=== PATIENT | male | born 1935 | race Caucasian/White ===

== ENCOUNTER 2016-12-20 12:41 | Day surgery (SDC) | payer MEDICARE ==
--- NOTE | ~2016-12-20 | EGD ---
EGD REPORT [facility] [address] [address] NAME: ERIBERTO GONZALEZ : 35 STATUS : REG [facility] [place] PAT#: [id number] AGE: 81 ADM/REG DATE : 12/20/16 MR#: [id number] REPORT SERV DATE: 12/20/16 DICTATED BY: GOPAL OLEARY DATE: 12/20/16 REPORT STATUS : Draft TRANSCRIBED BY: [facility] DATE: 12/20/16 Endoscopy Center Patient Name: Eriberto Gonzalez Date of : 1935 Attending MD: DEZ OLEARY MD Procedure Date No Time: 12/20/2016 Procedure: Upper GI endoscopy Indications: Dysphagia Referring MD: TRACEY DE LA CRUZ MD, BRENDA GUTIERREZ Medicines: See the Anesthesia note for documentation of the administered medications Complications: No immediate complications. Estimated blood loss: None. Procedure: Pre-Anesthesia Assessment: - Prior to the procedure, a History and Physical was performed, and patient medications and allergies were reviewed. The patient's tolerance of previous anesthesia was also reviewed. The risks and benefits of the procedure and the sedation options and risks were discussed with the patient. All questions were answered, and informed consent was obtained. Prior Anticoagulants: The patient has taken Plavix (clopidogrel), last dose was 1 day prior to procedure. ASA Grade Assessment: IV - A patient with severe systemic disease that is a constant threat to life. After reviewing the risks and benefits, the patient was deemed in satisfactory condition to undergo the procedure. - Patient has been on coumadin and lovenox managed by Dr Gutierrez After obtaining informed consent, the endoscope was passed under direct vision. Throughout the procedure, the patient's blood pressure, pulse, and oxygen saturations were monitored continuously. The GIF [id number] was introduced through the mouth, and advanced to the second part of duodenum. The upper GI endoscopy was accomplished without difficulty. The patient tolerated the procedure well. Findings: The examined duodenum was normal. Biopsies were taken with a cold forceps for histology. A single localized, small non-bleeding erosion was found in the stomach. There were no stigmata of recent bleeding. Biopsies were taken with a cold forceps for histology. No other significant abnormalities were identified in a careful examination of the stomach. EGD REPORT [address] [place]. [address] NAME: ERIBERTO GONZALEZ : 35 STATUS : REG [facility]#: [id number] AGE: 81 ADM/REG DATE : 12/20/16 MR#: [id number] REPORT SERV DATE: 12/20/16 DICTATED BY: GOPAL OLEARY DATE: 12/20/16 REPORT STATUS : Draft TRANSCRIBED BY: [employer] [facility] DATE: 12/20/16 The cardia and gastric fundus were normal on retroflexion. The examined esophagus was normal. A guidewire was placed and the scope was withdrawn. Dilation was performed with a Savary dilator with no resistance at 51 Fr, no resistance at 57 Fr and no resistance at 60 Fr. Estimated blood loss: none. Impression: - Normal examined duodenum. Biopsied. - Non-bleeding erosive gastropathy. Biopsied. - Normal esophagus. Dilated. Recommendation: - Patient has a contact number available for emergencies. The signs and symptoms of potential delayed complications were discussed with the patient. Return to normal activities tomorrow. Written discharge instructions were provided to the patient. - Regular diet. - Discharge patient to home. - Continue present medications. - Await pathology results. - Restart coumadin and lovenox as has been explained to you by Dr Friedman Procedure Code(s): --- Professional --- 60443, Esophagogastroduodenoscopy, flexible, transoral; with insertion of guide wire followed by passage of dilator(s) through esophagus over guide wire 44348, Esophagogastroduodenoscopy, flexible, transoral; with biopsy, single or multiple Diagnosis Code(s): --- Professional --- K31.9, Disease of stomach and duodenum, unspecified R13.10, Dysphagia, unspecified CPT copyright 2013 [employer] [employer]. All rights reserved. The codes documented in this report are preliminary and upon vocational nursing instructor review may be revised to meet current compliance requirements. DEZ OLEARY MD 12/20/2016 3:04 PM This report has been signed electronically. Number of Addenda: 0 Note Initiated On: 12/20/2016 2:24 PM Scope Withdrawal Time 0 hours 0 minutes 0 seconds EGD REPORT [facility] [address] [facility] [address] NAME: ERIBERTO GONZALEZ : 35 STATUS : REG [facility] [place] [facility] PAT#: [id number] AGE: 81 ADM/REG DATE : 12/20/16 MR#: [id number] REPORT SERV DATE: 12/20/16 DICTATED BY: GOPAL OLEARY DATE: 12/20/16 REPORT STATUS : Draft TRANSCRIBED BY: [employer] DATE: 12/20/16 [address] [place] [address]
[~2016-12-20 12:41] MED LIST: C5 PO; CELEXA20 PO; CELLCEPT5 PO; COREG3 PO; COREG6 PO; COUMADIN4 MG PO; COUMADIN7.5 MG PO; CRESTOR40 MG PO; DURICEF PO; FISH-EPA1000 MG PO; FLOMAX4 PO; KLOR-CON 1010 MEQ PO; KLOR-CON M2020 MEQ PO; L40 PO; LOVENOX; LOVENOX1C SC; NORCO1 TA1 PO; P20 PO; P5 PO; PLAVIX PO; POTASSIUM PO; POTASSIUM95 MG PO; RAPAFLO8 MG PO; UROCIT-K 5540 MG OR; ZANTAC 150 PO; ZANTAC150 MG PO; ZOCOR40 PO
[2017-01-11] MEDS ORDERED: AT25 PO (09:17)
[2017-06-14] MEDS ORDERED: COREG3 PO (17:02)
[2017-06-14] MEDS ORDERED: CELEXA40 MG PO (17:03)
[2017-06-14] MEDS ORDERED: PLAVIX PO (17:03)
[2017-06-14] MEDS ORDERED: POTASSIUM GLUCO99 MG PO (17:03)
[2017-06-14] MEDS ORDERED: DURA12 TOP (17:03)
[2017-06-14] MEDS ORDERED: ZANTAC150 MG PO (17:03)
[2017-06-14] MEDS ORDERED: ACET500CAP PO (17:04)
[2017-06-14] MEDS ORDERED: MIRALAX POWDER1 PKT PO (17:04)
== END 2016-12-20 23:59 | disposition home or self-care (01) ==
LOC: DMU 12:41
PROVIDERS: Internal Medicine Gastroenterology
PROC: 0D758ZZ Dilation of Esophagus, Via Natural or Artificial Opening Endoscopic (ICD-10-PCS; 2016-12-20)
PROC: 0DB98ZX Excision of Duodenum, Via Natural or Artificial Opening Endoscopic, Diagnostic (ICD-10-PCS; principal; 2016-12-20 14:00)
PROC: 0DB68ZX Excision of Stomach, Via Natural or Artificial Opening Endoscopic, Diagnostic (ICD-10-PCS; 2016-12-20 14:00)
DX: K29.50 Unspecified chronic gastritis without bleeding (principal); K31.9 Disease of stomach and duodenum, unspecified; R13.10 Dysphagia, unspecified
CPT/HCPCS: 88305

== ENCOUNTER 2017-01-15 09:53 | Day surgery (SDC) | payer MEDICARE ==
--- NOTE | ~2017-01-15 | OP ---
Record Of Operation [facility] [address] [place]. [address] NAME: ERIBERTO GONZALEZ : 35 STATUS : [facility]#: [id number] AGE: 81 ADM/REG DATE : 01/15/17 MR#: [id number] REPORT SERV DATE: 01/15/17 DICTATED BY: MISAEL BECKETT DATE: 01/15/17 REPORT STATUS : Draft TRANSCRIBED BY: MODL DATE: 01/15/17 DATE OF PROCEDURE: 01/15/2017 PREOPERATIVE DIAGNOSIS: Melanoma. POSTOPERATIVE DIAGNOSIS: Melanoma. PROCEDURE: Port-A-Cath placement. SURGEON: Misael Beckett M.D. CAFETERIA ASSOCIATE: Leoncio Govea M.D. ANESTHESIA: MAC. ESTIMATED BLOOD LOSS: Less than 5 mL. IV FLUIDS: 300 mL of crystalloid. SPECIMENS: None. DRAINS: None. COMPLICATIONS: None. FINDINGS: The patient had a patent and full right internal jugular vein catheter. The catheter at the end of the case was noted to be at the proximal to the SVC right atrial junction with a good bend, no kink in it, connected the port placed and also aspirated flushed with ease. INDICATIONS FOR PROCEDURE: This is an 81-year-old male with melanoma who needs central venous access to undergo chemotherapy and immunomodulation therapy. The above procedure was offered to the patient. Risks, benefits, and alternatives were explained and the patient, he expressed clear verbal understanding, wished to proceed for this elective procedure. DESCRIPTION OF PROCEDURE: After informed consent was obtained, the patient was taken back to the operative theater. The patient was laid on the operating table in the supine position. The patient was given adequate analgesia and anesthesia, and the surgery site was then prepped and draped in a standard fashion. A formal time-out was then performed. Appropriate preoperative antibiotics had been administered. All present in the operating room were in agreement and we elected to proceed for procedure. I began by administration of local anesthetic to the right side of the neck as well as to the right chest wall. Then, under ultrasound guidance, we located the right internal jugular vein. This was then accessed with an 18-gauge needle, and then cannulated with a guidewire. The guidewire was then secured to the sterile drapes. We then made our incision on the right chest wall inferior to the clavicle to anchor a port pocket. We then used electrocautery and blunt Record Of Operation [facility] [address] [place]. [address] NAME: ERIBERTO GONZALEZ : 35 STATUS : [facility] PAT#: [id number] AGE: 81 ADM/REG DATE : 01/15/17 MR#: [id number] REPORT SERV DATE: 01/15/17 DICTATED BY: MISAEL BECKETT DATE: 01/15/17 REPORT STATUS : Draft TRANSCRIBED BY: CONI DATE: 01/15/17 dissection and created the port pocket. We then used a 3-0 Vicryl and placed anchoring stitches on the medial and lateral aspect for port. These were then passed through and connected to the port, but not secured down. With an 11 blade, we made an incision over the guidewire at access site. We then used the dilator peel-away sheath advanced over the guidewire down the right internal jugular vein. We then removed the guidewire and the dilator leaving the peel-away sheath in place. We advanced the catheter down to the peel- away sheath, then removed it, leaving the catheter in place. The catheter was noted to be at the 15 cm dalton at the skin level at the access site. Fluoroscopy revealed the catheter tip to be proximal to the SVC right atrial junction. We then used a tunneler and advanced it from the access site to the first created port pocket as well as connecting to the catheter. The catheter was then withdrawn through the subcutaneous tissue from the port pocket. The catheter was cut to the appropriate length and then fitted and secured to the port. The port was then placed into the first created port pocket in the right chest wall. In this, the anchoring stitches were then secured down. The port was accessed with a Jeffery needle, and it aspirated and flushed with these. Final fluoroscopy picture revealed the port to be in good position as well as the catheter to have no kinks in it and a good bend and the tip to be at the proximal to the SVC right atrial junction. The skin edges were then reapproximated with the 3-0 Vicryl in a simple interrupted subcuticular stitch fashion. Skin was reapproximated well. Hemostasis was noted to be achieved. Steri-Strips were then placed over the two incision sites. Sterile dressings were then applied. Sterile drapes were then broken down. The patient was awake and alert. Vital signs were stable. The patient was transferred to recovery room in stable condition. DICTATED BY: MD ALICE Mcdonnell/CONI Misael Beckett M.D. / [id number] CC: Irma Valiente M.D.
[~2017-01-15 09:53] MED LIST changes: +AT25 PO
[2017-01-15 10:40] LABS: INTERNATIONAL NORMAL RATI 1.1 UNITS (-)
[2017-01-15 10:41] LABS: PROTIME (NOT ORD) 14.1 SEC (12.0-14.5)
[2017-06-14] MEDS ORDERED: COREG3 PO (17:02)
[2017-06-14] MEDS ORDERED: ZANTAC150 MG PO (17:03)
[2017-06-14] MEDS ORDERED: POTASSIUM GLUCO99 MG PO (17:03)
[2017-06-14] MEDS ORDERED: CELEXA40 MG PO (17:03)
[2017-06-14] MEDS ORDERED: PLAVIX PO (17:03)
[2017-06-14] MEDS ORDERED: DURA12 TOP (17:03)
[2017-06-14] MEDS ORDERED: ACET500CAP PO (17:04)
[2017-06-14] MEDS ORDERED: MIRALAX POWDER1 PKT PO (17:04)
== END 2017-01-15 17:14 | disposition home or self-care (01) ==
LOC: SDC 09:53
PROVIDERS: Specialist
PROC: 05HP33Z Insertion of Infusion Device into Right External Jugular Vein, Percutaneous Approach (ICD-10-PCS; 2017-01-15)
PROC: B513ZZA Fluoroscopy of Right Jugular Veins, Guidance (ICD-10-PCS; 2017-01-15)
PROC: B543ZZA Ultrasonography of Right Jugular Veins, Guidance (ICD-10-PCS; 2017-01-15)
PROC: 0JH60XZ Insertion of Tunneled Vascular Access Device into Chest Subcutaneous Tissue and Fascia, Open Approach (ICD-10-PCS; principal; 2017-01-15 11:00)
DX: C43.9 Malignant melanoma of skin, unspecified (principal); C78.7 Secondary malignant neoplasm of liver and intrahepatic bile duct; C78.00 Secondary malignant neoplasm of unspecified lung; Z98.890 Other specified postprocedural states; I25.10 Atherosclerotic heart disease of native coronary artery without angina pectoris; I48.2 Chronic atrial fibrillation; I50.9 Heart failure, unspecified; N40.1 Benign prostatic hyperplasia with lower urinary tract symptoms; N39.498 Other specified urinary incontinence; N32.81 Overactive bladder; J44.9 Chronic obstructive pulmonary disease, unspecified; G47.33 Obstructive sleep apnea (adult) (pediatric); G70.00 Myasthenia gravis without (acute) exacerbation; G57.93 Unspecified mononeuropathy of bilateral lower limbs; H91.90 Unspecified hearing loss, unspecified ear; F32.9 Major depressive disorder, single episode, unspecified; Z95.1 Presence of aortocoronary bypass graft; Z95.5 Presence of coronary angioplasty implant and graft; Z95.0 Presence of cardiac pacemaker; Z99.89 Dependence on other enabling machines and devices; Z86.711 Personal history of pulmonary embolism; Z88.0 Allergy status to penicillin; Z88.1 Allergy status to other antibiotic agents; Z88.6 Allergy status to analgesic agent; Z88.8 Allergy status to other drugs, medicaments and biological substances; Z79.02 Long term (current) use of antithrombotics/antiplatelets; Z79.01 Long term (current) use of anticoagulants; Z79.899 Other long term (current) drug therapy; Z90.49 Acquired absence of other specified parts of digestive tract; Z85.828 Personal history of other malignant neoplasm of skin; Z98.41 Cataract extraction status, right eye; Z98.42 Cataract extraction status, left eye; Z96.1 Presence of intraocular lens
CPT/HCPCS: 71010; 76000; 77001; 85610; 93005; A9270-GY; C1788; J0690; J2370; J3010; J3370